=== PATIENT | female | born 1955 | race Caucasian/White ===

== ENCOUNTER 2018-01-22 14:28 | Emergency (ER) | payer OTHER ==
[2018-01-22] MEDS: KETOROLAC 30 MG INJ IM (15:26)
[2018-01-22] MEDS: ONDANSETRON (ODT) 4 MG TAB ODT (15:26)
[2018-01-22] MEDS: HYDROCODONE/APAP (10/325) TAB PO (15:27)
[2018-01-22] MEDS: LIDOCAINE/MYLANTA 40 ML BTL PO (16:43)
== END 2018-01-22 16:38 | disposition home or self-care (01) ==
LOC: E/R 14:28
DX: M54.5 Low back pain (principal); J45.909 Unspecified asthma, uncomplicated; I10 Essential (primary) hypertension; E11.9 Type 2 diabetes mellitus without complications; Z79.4 Long term (current) use of insulin
CPT/HCPCS: 93005; 96372; 99284-25

== ENCOUNTER 2018-04-10 15:33 | Inpatient (IN) | payer OTHER ==
[2018-04-10 19:26] LABS: ADD MAN DIFF? NO
[2018-04-10 19:50] LABS: WHITE BLOOD COUNT 14.6 10^3/ul (4.8-10.8)
[2018-04-10 19:50] LABS: BASOPHILS % 0.1 % (0.0-2.0); EOSINOPHILS # 0.1 10^3/ul (0.0-0.5); EOSINOPHILS % 0.5 % (0.0-7.0); HEMATOCRIT 38.4 % (37.0-47.0); HEMOGLOBIN 12.6 g/dl (12.0-16.0); LYMPHOCYTES # 3.2 10^3/ul (0.8-2.9); MEAN CORPUSCULAR HEMOGLOBIN 30.4 pg (29.0-33.0); MEAN CORPUSCULAR HGB CONC 32.8 g/dl (32.0-37.0); MEAN CORPUSCULAR VOLUME 92.8 fl (82.0-101.0); NEUTROPHIL # 10.2 10^3/ul (1.6-7.5); NEUTROPHILS % 69.9 % (39.0-77.0); PLATELET COUNT 303 10^3/UL (140-415); RED BLOOD COUNT 4.14 10^6/ul (4.20-5.40); RED CELL DISTRIBUTION WIDTH 12.3 % (11.5-14.5)
[2018-04-10 19:56] LABS: ALANINE AMINOTRANSFERASE 45 IU/L (13-69); ALBUMIN 3.4 g/dl (3.3-4.9); ALBUMIN/GLOBULIN RATIO 1.06; ALKALINE PHOSPHATASE 103 IU/L (42-121); ANION GAP 12 (8-16); ASPARTATE AMINO TRANSFERASE 31 IU/L (15-46); BILIRUBIN,INDIRECT 0.1 mg/dl (0-1.1); BILIRUBIN,TOTAL 0.1 mg/dl (0.2-1.3); BLOOD UREA NITROGEN 23 mg/dl (7-20); CALCIUM 8.5 mg/dl (8.4-10.2); CARBON DIOXIDE 25 mmol/L (21-31); CHLORIDE 105 mmol/L (97-110); CREATININE 0.76 mg/dl (0.44-1.00); GLUCOSE 186 mg/dl (70-220); POTASSIUM 3.9 mmol/L (3.5-5.1); SODIUM 138 mmol/L (135-144); TOTAL PROTEIN 6.6 g/dl (6.1-8.1)
[2018-04-10 19:59] LABS: ADD UMIC YES; UR ASCORBIC ACID NEGATIVE (NEGATIVE); UR BILIRUBIN (Dip) NEGATIVE (NEGATIVE); UR BLOOD (Dip) NEGATIVE (NEGATIVE); UR CLARITY CLEAR (CLEAR); UR COLOR YELLOW (YELLOW); UR GLUCOSE (Dip) 3+ mg/dL (NEGATIVE); UR KETONES (Dip) NEGATIVE (NEGATIVE); UR LEUKOCYTE ESTERASE (Dip) 1+ Leu/ul (NEGATIVE); UR NITRITE (Dip) NEGATIVE (NEGATIVE); UR RBC 2 /HPF (0-5); UR SPECIFIC GRAVITY (Dip) 1.026 (1.003-1.030); UR SQUAMOUS EPITHELIAL CELL FEW /HPF (FEW); UR TOTAL PROTEIN (Dip) NEGATIVE (NEGATIVE); UR UROBILINOGEN (Dip) NEGATIVE (NEGATIVE); UR WBC 2 /HPF (0-5)
[2018-04-10 20:07] LABS: TROPONIN-I < 0.010 ng/ml (0.000-0.120)
[2018-04-10 20:20] LABS: INR 0.86; PROTIME 11.8 Sec (11.9-14.9); PT RATIO 0.9
[2018-04-10 20:21] LABS: PARTIAL THROMBOPLASTIN TIME 28.4 Sec (25.0-35.0)
[2018-04-10] MEDS: ACETAMINOPHEN 325 MG TAB PO (20:57)
[2018-04-10] MEDS: CEFTRIAXONE 1 GM/50 ML (PMX) 50 ML IVPB (20:57)
[2018-04-10] MEDS: ONDANSETRON 4 MG INJ IV (20:57)
[2018-04-10] MEDS: BENZONATATE 100 MG CAP PO (21:35)
[2018-04-10] MEDS: AZITHROMYCIN 500MG/NS (PMX) 250 ML IV (21:36)
[2018-04-10 21:40] LABS: LACTIC ACID 1.5 mmol/L (0.5-2.0)
[2018-04-11] MEDS ORDERED: GLUCOSE GEL 15 GRAM TUBE BUCCAL (01:00)
[2018-04-11] MEDS ORDERED: GLUCOSE GEL 15 GRAM TUBE PO ×2 (01:00)
[2018-04-11] MEDS ORDERED: DEXTROSE 50% 50 ML SYRINGE IV ×2 (01:00)
[2018-04-11] MEDS ORDERED: GLUCAGON 1 MG INJ IM (01:00)
[2018-04-11] MEDS ORDERED: PREGABALIN 25 MG CAP PO (01:00)
[2018-04-11] MEDS: PREGABALIN 75 MG CAP PO ×3 (01:02→20:57)
[2018-04-11] MEDS: FAMOTIDINE 20 MG TAB PO ×3 (01:02→20:58)
[2018-04-11] MEDS: traMADol 50 MG TAB PO ×2 (01:03→12:06)
[2018-04-11] MEDS: ACCU-CHEK XX (01:55)
[2018-04-11] MEDS: ZOLPIDEM 5 MG TAB PO (02:00)
[2018-04-11] MEDS: LEVOFLOXACIN 500MG/D5W (PMX) 100 ML IVPB (05:45)
[2018-04-11 05:51] LABS: ADD MAN DIFF? NO
[2018-04-11 05:55] LABS: WHITE BLOOD COUNT 12.7 10^3/ul (4.8-10.8)
[2018-04-11 05:55] LABS: BASOPHILS % 0.2 % (0.0-2.0); EOSINOPHILS # 0.1 10^3/ul (0.0-0.5); EOSINOPHILS % 0.6 % (0.0-7.0); HEMATOCRIT 40.1 % (37.0-47.0); HEMOGLOBIN 12.9 g/dl (12.0-16.0); LYMPHOCYTES # 3.4 10^3/ul (0.8-2.9); LYMPHOCYTES % 26.5 % (15.0-51.0); MEAN CORPUSCULAR HEMOGLOBIN 30.3 pg (29.0-33.0); MEAN CORPUSCULAR HGB CONC 32.2 g/dl (32.0-37.0); MEAN CORPUSCULAR VOLUME 94.1 fl (82.0-101.0); MEAN PLATELET VOLUME 10.9 fl (7.4-10.4); MONOCYTE # 0.8 10^3/ul (0.3-0.9); MONOCYTES % 6.5 % (0.0-11.0); NEUTROPHIL # 8.4 10^3/ul (1.6-7.5); NEUTROPHILS % 65.7 % (39.0-77.0); PLATELET COUNT 318 10^3/UL (140-415); RED BLOOD COUNT 4.26 10^6/ul (4.20-5.40); RED CELL DISTRIBUTION WIDTH 12.6 % (11.5-14.5)
[2018-04-11 06:14] LABS: HEMOGLOBIN A1C 10.6 % (0-5.9)
[2018-04-11 06:26] LABS: ALANINE AMINOTRANSFERASE 48 IU/L (13-69); ALBUMIN 3.3 g/dl (3.3-4.9); ALBUMIN/GLOBULIN RATIO 0.94; ALKALINE PHOSPHATASE 101 IU/L (42-121); ANION GAP 10 (8-16); ASPARTATE AMINO TRANSFERASE 35 IU/L (15-46); BILIRUBIN,INDIRECT 0.3 mg/dl (0-1.1); BILIRUBIN,TOTAL 0.3 mg/dl (0.2-1.3); BLOOD UREA NITROGEN 19 mg/dl (7-20); CALCIUM 8.8 mg/dl (8.4-10.2); CARBON DIOXIDE 31 mmol/L (21-31); CHLORIDE 105 mmol/L (97-110); CREATININE 0.71 mg/dl (0.44-1.00); GLUCOSE 272 mg/dl (70-220); POTASSIUM 5.2 mmol/L (3.5-5.1); SODIUM 141 mmol/L (135-144); TOTAL PROTEIN 6.8 g/dl (6.1-8.1)
[2018-04-11] MEDS: METOPROLOL 25 MG TAB PO ×2 (08:28→21:09)
[2018-04-11] MEDS: ACETAMINOPHEN 325 MG TAB PO ×2 (08:28→23:32)
[2018-04-11] MEDS: LOSARTAN 50 MG TAB PO (08:29)
[2018-04-11] MEDS: INSULIN ASPART [NOVOLOG] 3 ML PEN SC ×6 (08:32→21:02)
[2018-04-11] MEDS ORDERED: ALBUTEROL/IPRATROPIUM (NEB) 3 ML AMP HHN (10:00)
[2018-04-11] MEDS: METHYLPREDNISOLONE 125 MG INJ IV (11:24)
[2018-04-11] MEDS: AMLODIPINE 5 MG TAB PO (11:29)
[2018-04-11] MEDS: POLYETHYLENE GLYCOL 17 GM PACKET PO (12:42)
[2018-04-11] MEDS: FLUTICASONE/VILANTEROL 100-25 INH (14:02)
[2018-04-11] MEDS: ALBUTEROL/IPRATROPIUM (NEB) 3 ML AMP HHN ×2 (14:08→20:21)
[2018-04-11] MEDS: ACET/BUTAL/CAFF TAB PO (17:08)
[2018-04-11] MEDS ORDERED: INSULIN ASPART [NOVOLOG] 3 ML PEN SC (18:30)
[2018-04-11] MEDS: ATORVASTATIN 20 MG TAB PO (20:58)
[2018-04-11] MEDS: ENOXAPARIN 40 MG/0.4 ML SYG SC (21:03)
[2018-04-11] MEDS: LACTULOSE 30ML CUP PO (21:25)
[2018-04-12] MEDS: INSULIN GLARGINE [LANTus] (100 UNITS/ML) SYG SC ×2 (00:21→20:39)
[2018-04-12] MEDS: INSULIN ASPART [NOVOLOG] 3 ML PEN SC ×10 (00:22→21:40)
[2018-04-12] MEDS: ZOLPIDEM 5 MG TAB PO (00:24)
[2018-04-12] MEDS: ACCU-CHEK XX (03:20)
[2018-04-12] MEDS: LEVOFLOXACIN 500MG/D5W (PMX) 100 ML IVPB (06:24)
[2018-04-12 06:30] LABS: ADD MAN DIFF? NO
[2018-04-12 06:42] LABS: WHITE BLOOD COUNT 13.9 10^3/ul (4.8-10.8)
[2018-04-12 06:42] LABS: BASOPHILS % 0.1 % (0.0-2.0); HEMATOCRIT 39.3 % (37.0-47.0); HEMOGLOBIN 12.6 g/dl (12.0-16.0); LYMPHOCYTES # 2.6 10^3/ul (0.8-2.9); LYMPHOCYTES % 18.6 % (15.0-51.0); MEAN CORPUSCULAR HEMOGLOBIN 29.9 pg (29.0-33.0); MEAN CORPUSCULAR HGB CONC 32.1 g/dl (32.0-37.0); MEAN CORPUSCULAR VOLUME 93.1 fl (82.0-101.0); MEAN PLATELET VOLUME 11.2 fl (7.4-10.4); MONOCYTE # 0.9 10^3/ul (0.3-0.9); MONOCYTES % 6.4 % (0.0-11.0); NEUTROPHIL # 10.3 10^3/ul (1.6-7.5); NEUTROPHILS % 74.3 % (39.0-77.0); PLATELET COUNT 307 10^3/UL (140-415); RED BLOOD COUNT 4.22 10^6/ul (4.20-5.40); RED CELL DISTRIBUTION WIDTH 12.4 % (11.5-14.5)
[2018-04-12 07:02] LABS: ANION GAP 14 (8-16); BLOOD UREA NITROGEN 20 mg/dl (7-20); CALCIUM 8.8 mg/dl (8.4-10.2); CARBON DIOXIDE 27 mmol/L (21-31); CHLORIDE 102 mmol/L (97-110); CREATININE 0.62 mg/dl (0.44-1.00); GLUCOSE 306 mg/dl (70-220); POTASSIUM 4.9 mmol/L (3.5-5.1); SODIUM 138 mmol/L (135-144)
[2018-04-12] MEDS: ALBUTEROL/IPRATROPIUM (NEB) 3 ML AMP HHN ×3 (07:39→19:59)
[2018-04-12] MEDS ORDERED: INSULIN GLARGINE [LANTus] (100 UNITS/ML) SYG SC ×2 (08:00→21:00)
[2018-04-12] MEDS: POLYETHYLENE GLYCOL 17 GM PACKET PO (08:37)
[2018-04-12] MEDS: METHYLPREDNISOLONE 125 MG INJ IV (08:37)
[2018-04-12] MEDS: FAMOTIDINE 20 MG TAB PO ×2 (08:38→20:35)
[2018-04-12] MEDS: PREGABALIN 75 MG CAP PO ×2 (08:38→20:36)
[2018-04-12] MEDS: LOSARTAN 50 MG TAB PO (08:38)
[2018-04-12] MEDS: AMLODIPINE 5 MG TAB PO (08:38)
[2018-04-12] MEDS: FLUTICASONE/VILANTEROL 100-25 INH (08:39)
[2018-04-12] MEDS: METOPROLOL 25 MG TAB PO ×2 (08:39→20:36)
[2018-04-12] MEDS ORDERED: ACET/BUTAL/CAFF TAB PO (09:30)
[2018-04-12] MEDS ORDERED: hydrALAzine 20 MG INJ IV (10:00)
[2018-04-12] MEDS: traMADol 50 MG TAB PO (16:08)
[2018-04-12] MEDS: LACTULOSE 30ML CUP PO (16:08)
[2018-04-12] MEDS ORDERED: INSULIN LISPRO 100 UNIT/ML VIAL SC (18:00)
[2018-04-12] MEDS: GUAIFENESIN LA 600 MG TABSR PO ×2 (18:05→20:36)
[2018-04-12 18:14] LABS: GLUCOSE 491 mg/dl (70-220)
[2018-04-12] MEDS: ATORVASTATIN 20 MG TAB PO (20:35)
[2018-04-12] MEDS: OXYCODONE/ACETAMINOPHEN (10/325) TAB PO (21:33)
[2018-04-12] MEDS: ENOXAPARIN 40 MG/0.4 ML SYG SC (21:40)
[2018-04-12] MEDS: LINAGLIPTIN 5 MG TABLET PO (23:05)
[2018-04-13] MEDS: ZOLPIDEM 5 MG TAB PO ×2 (00:11→21:46)
[2018-04-13] MEDS: ACCU-CHEK XX (02:00)
[2018-04-13] MEDS: traMADol 50 MG TAB PO (02:21)
[2018-04-13] MEDS: BISMUTH SUBSALICYLATE 120 ML BTL PO (02:22)
[2018-04-13] MEDS: LEVOFLOXACIN 500MG/D5W (PMX) 100 ML IVPB (06:07)
[2018-04-13] MEDS: OXYCODONE/ACETAMINOPHEN (10/325) TAB PO ×3 (06:29→22:59)
[2018-04-13 07:05] LABS: ADD MAN DIFF? NO
[2018-04-13 07:10] LABS: BASOPHILS % 0.1 % (0.0-2.0); EOSINOPHILS % 0.1 % (0.0-7.0); HEMATOCRIT 39.2 % (37.0-47.0); HEMOGLOBIN 12.8 g/dl (12.0-16.0); LYMPHOCYTES # 3.6 10^3/ul (0.8-2.9); LYMPHOCYTES % 22.5 % (15.0-51.0); MEAN CORPUSCULAR HEMOGLOBIN 30.3 pg (29.0-33.0); MEAN CORPUSCULAR HGB CONC 32.7 g/dl (32.0-37.0); MEAN CORPUSCULAR VOLUME 92.7 fl (82.0-101.0); MEAN PLATELET VOLUME 10.6 fl (7.4-10.4); MONOCYTE # 1.3 10^3/ul (0.3-0.9); MONOCYTES % 8.2 % (0.0-11.0); NEUTROPHILS % 68.5 % (39.0-77.0); PLATELET COUNT 356 10^3/UL (140-415); RED BLOOD COUNT 4.23 10^6/ul (4.20-5.40); RED CELL DISTRIBUTION WIDTH 12.3 % (11.5-14.5)
[2018-04-13 07:36] LABS: ANION GAP 14 (8-16); BLOOD UREA NITROGEN 23 mg/dl (7-20); CALCIUM 8.6 mg/dl (8.4-10.2); CARBON DIOXIDE 28 mmol/L (21-31); CHLORIDE 102 mmol/L (97-110); CREATININE 0.75 mg/dl (0.44-1.00); GLUCOSE 267 mg/dl (70-220); POTASSIUM 4.1 mmol/L (3.5-5.1); SODIUM 140 mmol/L (135-144)
[2018-04-13] MEDS: ALBUTEROL/IPRATROPIUM (NEB) 3 ML AMP HHN ×3 (07:55→19:36)
[2018-04-13] MEDS: INSULIN ASPART [NOVOLOG] 3 ML PEN SC ×7 (08:28→21:58)
[2018-04-13] MEDS: LINAGLIPTIN 5 MG TABLET PO (09:00)
[2018-04-13] MEDS: GUAIFENESIN LA 600 MG TABSR PO ×2 (09:01→21:37)
[2018-04-13] MEDS: PREGABALIN 75 MG CAP PO ×2 (09:01→21:37)
[2018-04-13] MEDS: FAMOTIDINE 20 MG TAB PO ×2 (09:01→21:37)
[2018-04-13] MEDS: FLUTICASONE/VILANTEROL 100-25 INH (09:02)
[2018-04-13] MEDS: AMLODIPINE 5 MG TAB PO (09:03)
[2018-04-13] MEDS: METOPROLOL 25 MG TAB PO ×2 (09:03→21:38)
[2018-04-13] MEDS: LOSARTAN 50 MG TAB PO (09:04)
[2018-04-13] MEDS: POLYETHYLENE GLYCOL 17 GM PACKET PO (09:11)
[2018-04-13] MEDS: predniSONE 10 MG TAB PO (09:13)
[2018-04-13] MEDS ORDERED: KETOROLAC 30 MG INJ IV (10:30)
[2018-04-13] MEDS: DOCUSATE SODIUM 100 MG CAP PO (11:30)
[2018-04-13] MEDS: SENNA TAB PO ×2 (12:38→21:00)
[2018-04-13] MEDS: SUMATRIPTAN 6 MG/0.5 ML INJ SC (12:38)
[2018-04-13] MEDS: IOHEXOL 300MG/ML 150 ML BTL (13:37)
[2018-04-13] MEDS: SOD CHLORIDE 0.9% 100 ML (13:37)
[2018-04-13] MEDS: BISACODYL 10 MG SUPP PR (17:41)
[2018-04-13] MEDS: ACETAMINOPHEN 325 MG TAB PO (19:30)
[2018-04-13] MEDS: ATORVASTATIN 20 MG TAB PO (21:34)
[2018-04-13] MEDS: ENOXAPARIN 40 MG/0.4 ML SYG SC (21:50)
[2018-04-13] MEDS: INSULIN GLARGINE [LANTus] (100 UNITS/ML) SYG SC (21:59)
[2018-04-13] MEDS: LACTULOSE 30ML CUP PO (23:10)
[2018-04-14] MEDS: ACCU-CHEK XX (02:00)
[2018-04-14] MEDS: LACTULOSE 30ML CUP PO ×6 (05:04→23:00)
[2018-04-14] MEDS: LEVOFLOXACIN 500MG/D5W (PMX) 100 ML IVPB (05:08)
[2018-04-14] MEDS: OXYCODONE/ACETAMINOPHEN (10/325) TAB PO ×2 (05:14→21:00)
[2018-04-14 06:02] LABS: ADD MAN DIFF? NO
[2018-04-14 06:08] LABS: BASOPHILS % 0.1 % (0.0-2.0); EOSINOPHILS % 0.1 % (0.0-7.0); HEMATOCRIT 39.1 % (37.0-47.0); HEMOGLOBIN 12.8 g/dl (12.0-16.0); LYMPHOCYTES # 3.7 10^3/ul (0.8-2.9); LYMPHOCYTES % 26.5 % (15.0-51.0); MEAN CORPUSCULAR HEMOGLOBIN 30.2 pg (29.0-33.0); MEAN CORPUSCULAR HGB CONC 32.7 g/dl (32.0-37.0); MEAN CORPUSCULAR VOLUME 92.2 fl (82.0-101.0); MEAN PLATELET VOLUME 10.8 fl (7.4-10.4); MONOCYTE # 1.1 10^3/ul (0.3-0.9); MONOCYTES % 7.8 % (0.0-11.0); NEUTROPHIL # 8.9 10^3/ul (1.6-7.5); NEUTROPHILS % 64.9 % (39.0-77.0); PLATELET COUNT 331 10^3/UL (140-415); RED BLOOD COUNT 4.24 10^6/ul (4.20-5.40); RED CELL DISTRIBUTION WIDTH 12.9 % (11.5-14.5)
[2018-04-14 06:08] LABS: WHITE BLOOD COUNT 13.8 10^3/ul (4.8-10.8)
[2018-04-14 06:51] LABS: ANION GAP 10 (8-16); BLOOD UREA NITROGEN 29 mg/dl (7-20); CALCIUM 8.8 mg/dl (8.4-10.2); CARBON DIOXIDE 29 mmol/L (21-31); CHLORIDE 103 mmol/L (97-110); CREATININE 0.68 mg/dl (0.44-1.00); GLUCOSE 245 mg/dl (70-220); POTASSIUM 3.8 mmol/L (3.5-5.1); SODIUM 138 mmol/L (135-144)
[2018-04-14] MEDS: ALBUTEROL/IPRATROPIUM (NEB) 3 ML AMP HHN ×3 (07:59→19:41)
[2018-04-14] MEDS: INSULIN ASPART [NOVOLOG] 3 ML PEN SC ×7 (08:34→21:07)
[2018-04-14] MEDS: DOCUSATE SODIUM 100 MG CAP PO (10:01)
[2018-04-14] MEDS: LOSARTAN 50 MG TAB PO (10:01)
[2018-04-14] MEDS: FAMOTIDINE 20 MG TAB PO ×2 (10:01→20:55)
[2018-04-14] MEDS: METOPROLOL 25 MG TAB PO ×2 (10:01→20:55)
[2018-04-14] MEDS: ACET/BUTAL/CAFF TAB PO ×2 (10:01→21:55)
[2018-04-14] MEDS: LINAGLIPTIN 5 MG TABLET PO (10:02)
[2018-04-14] MEDS: AMLODIPINE 5 MG TAB PO (10:02)
[2018-04-14] MEDS: PREGABALIN 75 MG CAP PO ×2 (10:02→20:55)
[2018-04-14] MEDS: SENNA TAB PO ×2 (10:02→20:55)
[2018-04-14] MEDS: POLYETHYLENE GLYCOL 17 GM PACKET PO (10:02)
[2018-04-14] MEDS: GUAIFENESIN LA 600 MG TABSR PO ×2 (10:02→20:55)
[2018-04-14] MEDS: FLUTICASONE/VILANTEROL 100-25 INH (10:03)
[2018-04-14] MEDS ORDERED: VANCOMYCIN IV PER PHARMACY XX (10:30)
[2018-04-14] MEDS: ERTAPENEM SODIUM 1 GM in SOD CHLORIDE 0.9% 100 ML IVPB (11:27)
[2018-04-14] MEDS: VANCOMYCIN 2 GM in SOD CHLORIDE 0.9% 500 ML IVPB ×2 (12:41→22:27)
[2018-04-14] MEDS: ATORVASTATIN 20 MG TAB PO (20:54)
[2018-04-14] MEDS: ZOLPIDEM 5 MG TAB PO (21:00)
[2018-04-14] MEDS: INSULIN GLARGINE [LANTus] (100 UNITS/ML) SYG SC (21:05)
[2018-04-14] MEDS: ENOXAPARIN 40 MG/0.4 ML SYG SC (21:59)
[2018-04-15] MEDS: ACCU-CHEK XX (02:00)
[2018-04-15] MEDS: LACTULOSE 30ML CUP PO ×4 (04:53→23:00)
[2018-04-15 06:36] LABS: ADD MAN DIFF? NO
[2018-04-15 06:40] LABS: BASOPHILS % 0.2 % (0.0-2.0); EOSINOPHILS # 0.1 10^3/ul (0.0-0.5); EOSINOPHILS % 0.5 % (0.0-7.0); HEMATOCRIT 39.9 % (37.0-47.0); HEMOGLOBIN 12.6 g/dl (12.0-16.0); LYMPHOCYTES # 3.5 10^3/ul (0.8-2.9); LYMPHOCYTES % 27.8 % (15.0-51.0); MEAN CORPUSCULAR HEMOGLOBIN 30.1 pg (29.0-33.0); MEAN CORPUSCULAR HGB CONC 31.6 g/dl (32.0-37.0); MEAN CORPUSCULAR VOLUME 95.2 fl (82.0-101.0); MEAN PLATELET VOLUME 10.7 fl (7.4-10.4); MONOCYTE # 0.9 10^3/ul (0.3-0.9); MONOCYTES % 7.5 % (0.0-11.0); NEUTROPHILS % 63.4 % (39.0-77.0); PLATELET COUNT 321 10^3/UL (140-415); RED BLOOD COUNT 4.19 10^6/ul (4.20-5.40); RED CELL DISTRIBUTION WIDTH 12.8 % (11.5-14.5)
[2018-04-15 06:40] LABS: WHITE BLOOD COUNT 12.6 10^3/ul (4.8-10.8)
[2018-04-15 07:09] LABS: ANION GAP 11 (8-16); BLOOD UREA NITROGEN 27 mg/dl (7-20); CALCIUM 8.5 mg/dl (8.4-10.2); CARBON DIOXIDE 29 mmol/L (21-31); CHLORIDE 105 mmol/L (97-110); CREATININE 0.71 mg/dl (0.44-1.00); GLUCOSE 244 mg/dl (70-220); POTASSIUM 4.6 mmol/L (3.5-5.1); SODIUM 140 mmol/L (135-144)
[2018-04-15] MEDS: EMPAGLIFLOZIN 10 MG TABLET PO (07:55)
[2018-04-15] MEDS: LINAGLIPTIN 5 MG TABLET PO (07:55)
[2018-04-15] MEDS: INSULIN ASPART [NOVOLOG] 3 ML PEN SC ×7 (07:57→21:19)
[2018-04-15] MEDS: ALBUTEROL/IPRATROPIUM (NEB) 3 ML AMP HHN ×4 (08:01→20:20)
[2018-04-15] MEDS: PREGABALIN 75 MG CAP PO ×2 (09:18→21:11)
[2018-04-15] MEDS: FAMOTIDINE 20 MG TAB PO ×2 (09:18→21:12)
[2018-04-15] MEDS: SENNA TAB PO ×2 (09:18→21:12)
[2018-04-15] MEDS: DOCUSATE SODIUM 100 MG CAP PO (09:18)
[2018-04-15] MEDS: GUAIFENESIN LA 600 MG TABSR PO ×2 (09:18→21:11)
[2018-04-15] MEDS: FLUTICASONE/VILANTEROL 100-25 INH (09:19)
[2018-04-15] MEDS: POLYETHYLENE GLYCOL 17 GM PACKET PO (09:19)
[2018-04-15] MEDS: LOSARTAN 50 MG TAB PO (09:19)
[2018-04-15] MEDS: METOPROLOL 25 MG TAB PO ×2 (09:19→21:12)
[2018-04-15] MEDS: AMLODIPINE 5 MG TAB PO (09:19)
[2018-04-15] MEDS: predniSONE 10 MG TAB PO (09:19)
[2018-04-15] MEDS: VANCOMYCIN 2 GM in SOD CHLORIDE 0.9% 500 ML IVPB ×2 (10:06→21:42)
[2018-04-15] MEDS: OXYCODONE/ACETAMINOPHEN (10/325) TAB PO ×2 (11:46→21:11)
[2018-04-15] MEDS: ERTAPENEM SODIUM 1 GM in SOD CHLORIDE 0.9% 100 ML IVPB (15:16)
[2018-04-15] MEDS: LORAZEPAM 0.5 MG TAB PO (15:21)
[2018-04-15] MEDS: ATORVASTATIN 20 MG TAB PO (21:11)
[2018-04-15] MEDS: INSULIN GLARGINE [LANTus] (100 UNITS/ML) SYG SC (21:19)
[2018-04-15] MEDS: ENOXAPARIN 40 MG/0.4 ML SYG SC (21:19)
[2018-04-15] MEDS: ZOLPIDEM 5 MG TAB PO (21:20)
[2018-04-15 21:35] LABS: VANCOMYCIN,TROUGH 15.9 ug/ml (10.0-20.0)
[2018-04-16] MEDS: ACET/BUTAL/CAFF TAB PO (02:01)
[2018-04-16] MEDS: ACCU-CHEK XX (02:05)
[2018-04-16] MEDS: LACTULOSE 30ML CUP PO ×4 (05:00→23:00)
[2018-04-16 07:13] LABS: ADD MAN DIFF? NO
[2018-04-16 07:16] LABS: WHITE BLOOD COUNT 14.3 10^3/ul (4.8-10.8)
[2018-04-16 07:16] LABS: BASOPHILS % 0.1 % (0.0-2.0); EOSINOPHILS # 0.1 10^3/ul (0.0-0.5); EOSINOPHILS % 0.8 % (0.0-7.0); HEMATOCRIT 37.6 % (37.0-47.0); HEMOGLOBIN 12.1 g/dl (12.0-16.0); LYMPHOCYTES # 3.3 10^3/ul (0.8-2.9); LYMPHOCYTES % 23.1 % (15.0-51.0); MEAN CORPUSCULAR HEMOGLOBIN 30.6 pg (29.0-33.0); MEAN CORPUSCULAR HGB CONC 32.2 g/dl (32.0-37.0); MEAN CORPUSCULAR VOLUME 94.9 fl (82.0-101.0); MEAN PLATELET VOLUME 11.7 fl (7.4-10.4); MONOCYTES % 6.9 % (0.0-11.0); NEUTROPHIL # 9.8 10^3/ul (1.6-7.5); NEUTROPHILS % 68.5 % (39.0-77.0); PLATELET COUNT 242 10^3/UL (140-415); RED BLOOD COUNT 3.96 10^6/ul (4.20-5.40); RED CELL DISTRIBUTION WIDTH 12.8 % (11.5-14.5)
[2018-04-16 07:46] LABS: CHOL/HDL RATIO 2.3 RATIO; CHOLESTEROL 138 mg/dl (100-200); HDL CHOLESTEROL 60 mg/dl (35-98); LDL CHOLESTEROL,CALCULATED 63 mg/dl; TRIGLYCERIDES 76 mg/dl (0-149)
[2018-04-16 07:46] LABS: PHOSPHORUS 5.4 mg/dl (2.5-4.9)
[2018-04-16 07:51] LABS: ANION GAP 10 (8-16); BLOOD UREA NITROGEN 18 mg/dl (7-20); CALCIUM 8.8 mg/dl (8.4-10.2); CARBON DIOXIDE 29 mmol/L (21-31); CHLORIDE 105 mmol/L (97-110); CREATININE 0.58 mg/dl (0.44-1.00); GLUCOSE 146 mg/dl (70-220); SODIUM 140 mmol/L (135-144)
[2018-04-16] MEDS: INSULIN ASPART [NOVOLOG] 3 ML PEN SC ×7 (08:00→21:20)
[2018-04-16] MEDS: ALBUTEROL/IPRATROPIUM (NEB) 3 ML AMP HHN ×3 (08:24→20:21)
[2018-04-16] MEDS: VANCOMYCIN 2 GM in SOD CHLORIDE 0.9% 500 ML IVPB (10:03)
[2018-04-16] MEDS: POLYETHYLENE GLYCOL 17 GM PACKET PO (10:03)
[2018-04-16] MEDS: LOSARTAN 50 MG TAB PO (10:04)
[2018-04-16] MEDS: DOCUSATE SODIUM 100 MG CAP PO (10:04)
[2018-04-16] MEDS: FAMOTIDINE 20 MG TAB PO ×2 (10:06→21:17)
[2018-04-16] MEDS: EMPAGLIFLOZIN 10 MG TABLET PO (10:06)
[2018-04-16] MEDS: AMLODIPINE 5 MG TAB PO (10:06)
[2018-04-16] MEDS: PREGABALIN 75 MG CAP PO ×2 (10:06→21:14)
[2018-04-16] MEDS: SENNA TAB PO ×2 (10:06→21:16)
[2018-04-16] MEDS: LINAGLIPTIN 5 MG TABLET PO (10:06)
[2018-04-16] MEDS: METOPROLOL 25 MG TAB PO ×2 (10:07→21:18)
[2018-04-16] MEDS: predniSONE 10 MG TAB PO (10:07)
[2018-04-16] MEDS: FLUTICASONE/VILANTEROL 100-25 INH (10:08)
[2018-04-16] MEDS: GUAIFENESIN LA 600 MG TABSR PO ×2 (10:26→21:17)
[2018-04-16] MEDS: FLUCONAZOLE 100 MG TAB PO (12:10)
[2018-04-16] MEDS: ERTAPENEM SODIUM 1 GM in SOD CHLORIDE 0.9% 100 ML IVPB (12:10)
[2018-04-16] MEDS: L ACIDOPHIL/B LACTIS/B LONGUM CAPSULE PO (21:15)
[2018-04-16] MEDS: AMOXICILLIN 500 MG CAP PO (21:15)
[2018-04-16] MEDS: OXYCODONE/ACETAMINOPHEN (10/325) TAB PO (21:16)
[2018-04-16] MEDS: ZOLPIDEM 5 MG TAB PO (21:17)
[2018-04-16] MEDS: ATORVASTATIN 20 MG TAB PO (21:18)
[2018-04-16] MEDS: ENOXAPARIN 40 MG/0.4 ML SYG SC (21:21)
[2018-04-16] MEDS: INSULIN GLARGINE [LANTus] (100 UNITS/ML) SYG SC (21:22)
[2018-04-17] MEDS: ACCU-CHEK XX (02:13)
[2018-04-17] MEDS: ACET/BUTAL/CAFF TAB PO (02:13)
[2018-04-17] MEDS: LACTULOSE 30ML CUP PO ×3 (05:00→17:00)
[2018-04-17] MEDS: AMOXICILLIN 500 MG CAP PO ×2 (05:38→17:21)
[2018-04-17] MEDS: ALBUTEROL/IPRATROPIUM (NEB) 3 ML AMP HHN ×2 (07:19→14:39)
[2018-04-17 07:42] LABS: ADD MAN DIFF? NO
[2018-04-17 07:47] LABS: BASOPHILS % 0.3 % (0.0-2.0); EOSINOPHILS # 0.1 10^3/ul (0.0-0.5); EOSINOPHILS % 0.7 % (0.0-7.0); HEMATOCRIT 38.5 % (37.0-47.0); HEMOGLOBIN 12.3 g/dl (12.0-16.0); LYMPHOCYTES # 2.9 10^3/ul (0.8-2.9); LYMPHOCYTES % 24.5 % (15.0-51.0); MEAN CORPUSCULAR HEMOGLOBIN 30.4 pg (29.0-33.0); MEAN CORPUSCULAR HGB CONC 31.9 g/dl (32.0-37.0); MEAN CORPUSCULAR VOLUME 95.1 fl (82.0-101.0); MEAN PLATELET VOLUME 11.1 fl (7.4-10.4); MONOCYTE # 0.6 10^3/ul (0.3-0.9); MONOCYTES % 5.3 % (0.0-11.0); NEUTROPHIL # 8.1 10^3/ul (1.6-7.5); NEUTROPHILS % 68.7 % (39.0-77.0); PLATELET COUNT 291 10^3/UL (140-415); RED BLOOD COUNT 4.05 10^6/ul (4.20-5.40); RED CELL DISTRIBUTION WIDTH 12.8 % (11.5-14.5)
[2018-04-17 07:47] LABS: WHITE BLOOD COUNT 11.7 10^3/ul (4.8-10.8)
[2018-04-17 08:17] LABS: ANION GAP 11 (8-16); BLOOD UREA NITROGEN 21 mg/dl (7-20); CALCIUM 8.6 mg/dl (8.4-10.2); CARBON DIOXIDE 30 mmol/L (21-31); CHLORIDE 104 mmol/L (97-110); CREATININE 0.74 mg/dl (0.44-1.00); GLUCOSE 218 mg/dl (70-220); POTASSIUM 4.3 mmol/L (3.5-5.1); SODIUM 141 mmol/L (135-144)
[2018-04-17 08:21] LABS: MAGNESIUM 1.9 mg/dl (1.7-2.5)
[2018-04-17 08:21] LABS: PHOSPHORUS 5.7 mg/dl (2.5-4.9)
[2018-04-17] MEDS: POLYETHYLENE GLYCOL 17 GM PACKET PO (09:00)
[2018-04-17] MEDS: DOCUSATE SODIUM 100 MG CAP PO (09:05)
[2018-04-17] MEDS: PREGABALIN 75 MG CAP PO (09:05)
[2018-04-17] MEDS: GUAIFENESIN LA 600 MG TABSR PO (09:05)
[2018-04-17] MEDS: predniSONE 10 MG TAB PO (09:05)
[2018-04-17] MEDS: LINAGLIPTIN 5 MG TABLET PO (09:05)
[2018-04-17] MEDS: METOPROLOL 25 MG TAB PO (09:06)
[2018-04-17] MEDS: LOSARTAN 50 MG TAB PO (09:06)
[2018-04-17] MEDS: FAMOTIDINE 20 MG TAB PO (09:07)
[2018-04-17] MEDS: FLUCONAZOLE 100 MG TAB PO (09:07)
[2018-04-17] MEDS: AMLODIPINE 5 MG TAB PO (09:07)
[2018-04-17] MEDS: EMPAGLIFLOZIN 10 MG TABLET PO (09:07)
[2018-04-17] MEDS: SENNA TAB PO (09:07)
[2018-04-17] MEDS: FLUTICASONE/VILANTEROL 100-25 INH (09:09)
[2018-04-17] MEDS: INSULIN ASPART [NOVOLOG] 3 ML PEN SC ×6 (09:10→17:52)
[2018-04-17] MEDS: OXYCODONE/ACETAMINOPHEN (10/325) TAB PO (09:49)
[2018-04-17] MEDS: L ACIDOPHIL/B LACTIS/B LONGUM CAPSULE PO (09:49)
[2018-04-17] MEDS: ERTAPENEM SODIUM 1 GM in SOD CHLORIDE 0.9% 100 ML IVPB (12:24)
[2018-04-17] MEDS: LIDOCAINE/MYLANTA 40 ML BTL PO (17:21)
== END 2018-04-17 18:05 | disposition home health service (06) | DRG 202 ==
LOC: E/R 15:33 → 2NE 20:26
DX: J45.901 Unspecified asthma with (acute) exacerbation (principal); Z68.42 Body mass index [BMI] 45.0-49.9, adult; N39.0 Urinary tract infection, site not specified; E66.01 Morbid (severe) obesity due to excess calories; I10 Essential (primary) hypertension; Z86.73 Personal history of transient ischemic attack (TIA), and cerebral infarction without residual deficits; E78.5 Hyperlipidemia, unspecified; F41.9 Anxiety disorder, unspecified; N95.0 Postmenopausal bleeding; B96.20 Unspecified Escherichia coli [E. coli] as the cause of diseases classified elsewhere; B95.2 Enterococcus as the cause of diseases classified elsewhere; E11.65 Type 2 diabetes mellitus with hyperglycemia
CPT/HCPCS: 71045; 71260; 76830; 76856; 80048; 80053; 80061; 80202; 81001; 82947; 82962; 83036; 83605; 83735; 84100; 84484; 85025; 85610; 85730; 87040; 87070; 87086; 93005; 94640; 94664; 97162; 99291-25

== ENCOUNTER 2018-09-02 14:22 | Emergency (ER) | payer OTHER ==
[2018-09-02] MEDS: KETOROLAC 30 MG INJ IM (18:57)
[2018-09-02] MEDS: ONDANSETRON (ODT) 4 MG TAB ODT (19:04)
[2018-09-02 19:38] LABS: ADD MAN DIFF? NO
[2018-09-02] MEDS: LIDOCAINE/MYLANTA 40 ML BTL PO (19:45)
[2018-09-02 19:46] LABS: WHITE BLOOD COUNT 10.2 10^3/ul (4.8-10.8)
[2018-09-02 19:46] LABS: BASOPHILS % 0.3 % (0.0-2.0); EOSINOPHILS # 0.1 10^3/ul (0.0-0.5); EOSINOPHILS % 0.7 % (0.0-7.0); HEMATOCRIT 40.7 % (37.0-47.0); HEMOGLOBIN 13.4 g/dl (12.0-16.0); LYMPHOCYTES # 2.9 10^3/ul (0.8-2.9); LYMPHOCYTES % 28.5 % (15.0-51.0); MEAN CORPUSCULAR HEMOGLOBIN 29.9 pg (29.0-33.0); MEAN CORPUSCULAR HGB CONC 32.9 g/dl (32.0-37.0); MEAN CORPUSCULAR VOLUME 90.8 fl (82.0-101.0); MEAN PLATELET VOLUME 11.1 fl (7.4-10.4); MONOCYTE # 0.8 10^3/ul (0.3-0.9); MONOCYTES % 7.5 % (0.0-11.0); NEUTROPHIL # 6.4 10^3/ul (1.6-7.5); NEUTROPHILS % 62.6 % (39.0-77.0); PLATELET COUNT 300 10^3/UL (140-415); RED BLOOD COUNT 4.48 10^6/ul (4.20-5.40); RED CELL DISTRIBUTION WIDTH 12.6 % (11.5-14.5)
[2018-09-02 20:01] LABS: ADD UMIC NO; UR ASCORBIC ACID NEGATIVE (NEGATIVE); UR BILIRUBIN (Dip) NEGATIVE (NEGATIVE); UR BLOOD (Dip) NEGATIVE (NEGATIVE); UR CLARITY CLEAR (CLEAR); UR COLOR YELLOW (YELLOW); UR GLUCOSE (Dip) 3+ mg/dL (NEGATIVE); UR KETONES (Dip) NEGATIVE (NEGATIVE); UR LEUKOCYTE ESTERASE (Dip) NEGATIVE Leu/ul (NEGATIVE); UR NITRITE (Dip) NEGATIVE (NEGATIVE); UR SPECIFIC GRAVITY (Dip) 1.013 (1.003-1.030); UR TOTAL PROTEIN (Dip) NEGATIVE (NEGATIVE); UR UROBILINOGEN (Dip) NEGATIVE (NEGATIVE)
[2018-09-02 20:09] LABS: ALANINE AMINOTRANSFERASE 26 IU/L (13-69); ALBUMIN 4.1 g/dl (3.3-4.9); ALBUMIN/GLOBULIN RATIO 1.05; ALKALINE PHOSPHATASE 91 IU/L (42-121); ANION GAP 5 (5-13); ASPARTATE AMINO TRANSFERASE 34 IU/L (15-46); BILIRUBIN,INDIRECT 0.3 mg/dl (0-1.1); BILIRUBIN,TOTAL 0.3 mg/dl (0.2-1.3); BLOOD UREA NITROGEN 14 mg/dl (7-20); CALCIUM 9.1 mg/dl (8.4-10.2); CARBON DIOXIDE 30 mmol/L (21-31); CHLORIDE 104 mmol/L (97-110); CREATININE 0.56 mg/dl (0.44-1.00); Estimated GFR > 60 mL/min (>60); GLUCOSE 180 mg/dl (70-220); POTASSIUM 4.1 mmol/L (3.5-5.1); SODIUM 139 mmol/L (135-144)
== END 2018-09-02 22:37 | disposition home or self-care (01) ==
LOC: FTE 14:22
DX: N93.9 Abnormal uterine and vaginal bleeding, unspecified (principal); M54.41 Lumbago with sciatica, right side; M54.42 Lumbago with sciatica, left side; E11.9 Type 2 diabetes mellitus without complications; I10 Essential (primary) hypertension; J45.909 Unspecified asthma, uncomplicated; Z86.73 Personal history of transient ischemic attack (TIA), and cerebral infarction without residual deficits; Z79.4 Long term (current) use of insulin
CPT/HCPCS: 72131; 74176; 80053; 81003; 85025; 96372; 99285-25